=== PATIENT | male | born 1985 | race Caucasian/White ===

== ENCOUNTER 2019-09-28 22:02 | Emergency (ER) | payer SELFPAY ==
[~2019-09-28] VITALS: Ht 170.2 cm; Wt 90.7 kg
[2019-09-28 22:03] VITALS: Ht 170.2 cm; Wt 90.7 kg
[2019-09-28 22:32] VITALS: BP 143/105
== END 2019-09-28 22:32 | disposition short-term general hospital (02) ==
LOC: ED 22:02
DX: J45.901 Unspecified asthma with (acute) exacerbation (principal); R19.7 Diarrhea, unspecified